=== PATIENT | male | born 1965 | race Two or more races ===

== ENCOUNTER 2020-10-27 09:00 | Outpatient (CLI) | payer OTHER | END 2020-10-27 09:08 | disposition home or self-care (01) | LOC: RAD 09:00 | PROVIDERS: ATTEND Orthopaedic Surgery | DX: M25.511 Pain in right shoulder (principal) ==

== ENCOUNTER 2020-12-10 11:24 | Outpatient (CLI) | payer OTHER ==
[2020-12-10] MEDS ORDERED: AMLODIPINE PO (14:11)
[2020-12-10] MEDS ORDERED: BENAZEPRIL HCL5 MG PO (14:11)
[2020-12-21] MEDS ORDERED: TAMS0.4C PO (10:07)
[2020-12-21] MEDS ORDERED: SINGULAIR10 MG PO (10:07)
[2020-12-21] MEDS ORDERED: CARAFATE1 GM PO (10:07)
== END 2020-12-10 11:39 | disposition home or self-care (01) ==
LOC: LAB 11:24 → EDBD 11:24 → LAB 11:39
PROVIDERS: ATTEND Orthopaedic Surgery
DX: D64.89 Other specified anemias (principal); Z76.89 Persons encountering health services in other specified circumstances; I49.8 Other specified cardiac arrhythmias; I10 Essential (primary) hypertension; E88.89 Other specified metabolic disorders; D68.8 Other specified coagulation defects; N39.0 Urinary tract infection, site not specified; Z22.322 Carrier or suspected carrier of Methicillin resistant Staphylococcus aureus

== ENCOUNTER 2020-12-25 06:05 | Day surgery (SDC) | payer OTHER ==
[~2020-12-25 06:05] MED LIST: AMLODIPINE PO; BENAZEPRIL HCL5 MG PO; CARAFATE1 GM PO; SINGULAIR10 MG PO; TAMS0.4C PO
== END 2020-12-25 15:30 | disposition home or self-care (01) ==
LOC: CIR.AMB 06:05 → EDBD 07:00 → CIR.AMB 07:00
PROVIDERS: ATTEND Orthopaedic Surgery
DX: M75.121 Complete rotator cuff tear or rupture of right shoulder, not specified as traumatic (principal); Z20.822 Contact with and (suspected) exposure to COVID-19